=== PATIENT | female | born 1940 | race Caucasian/White ===

== ENCOUNTER 2016-07-09 06:28 | Emergency (ER) | payer MEDICARE, MEDICAID ==
[~2016-07-09] VITALS: Ht 129.5 cm; Wt 50.0 kg
[2016-07-09] MEDS ORDERED: MORPHINE SULFATE 4 MG/ML, 1ML IVPush PRN (07:00)
[2016-07-09] MEDS ORDERED: PLEASE ENTER ALLERGIES MC SCH ×2 (07:00)
[2016-07-09] MEDS ORDERED: SODIUM CHLORIDE 0.9% 1,000ML IVBOLUS ONE (07:00)
[2016-07-09] MEDS ORDERED: INSU100V8 SQ (07:08)
[2016-07-09] MEDS ORDERED: COLE5PAC3 PO (07:08)
[2016-07-09] MEDS ORDERED: HALO2TAB PO (07:08)
[2016-07-09] MEDS ORDERED: SIMV40TA3 PO (07:08)
[2016-07-09] MEDS ORDERED: CLOP75TA22 PO (07:08)
[2016-07-09] MEDS ORDERED: FAMO-79 PO (07:08)
[2016-07-09] MEDS ORDERED: HYDR-3240 PO (07:08)
[2016-07-09] MEDS ORDERED: LIOT5TAB6 PO (07:08)
[2016-07-09] MEDS ORDERED: LEVO175T5 PO (07:08)
[2016-07-09] MEDS ORDERED: CLON-365 PO (07:08)
[2016-07-09] MEDS ORDERED: MORPHINE SULFATE 4 MG/ML, 1ML ONE (07:21)
[2016-07-09 07:24] LABS: BLOOD UREA NITROGEN 18 mg/dL (7-18)
[2016-07-09] MEDS ORDERED: INSULIN REGULAR 100 UNITS/ML, 3ML VIAL SQ-INSULIN STA (08:07)
[2016-07-09] MEDS ORDERED: INSULIN SINGLE DOSE, ER SQ-INSULIN ONE (08:12)
[2016-07-09 08:32] VITALS: BP 115/78
== END 2016-07-09 09:06 | disposition home or self-care (01) ==
LOC: ED 08:04
DX: M79.662 Pain in left lower leg (principal); M79.661 Pain in right lower leg; E11.65 Type 2 diabetes mellitus with hyperglycemia; I25.10 Atherosclerotic heart disease of native coronary artery without angina pectoris; E78.00 Pure hypercholesterolemia, unspecified; E03.9 Hypothyroidism, unspecified
CPT/HCPCS: 36415; 80048; 82040; 85025; 96361; 96372; 96374; 99285; J7030